=== PATIENT | male | born 1965 | race Caucasian/White ===

== ENCOUNTER 2019-04-17 04:04 | Emergency (ER) | payer OTHER ==
[~2019-04-17] VITALS: Ht 177.8 cm; Wt 122.5 kg
[2019-04-17] MEDS ORDERED: ONDANSETRON PF 4 MG/2 ML VIAL. IV ONE (04:30)
[2019-04-17] MEDS ORDERED: KETOROLAC 30 MG/ML VIAL. IV ONE (04:30)
[2019-04-17] MEDS ORDERED: IV NORMAL SALINE 1000ML BAG 1,000 ML IV ONE (04:30)
[2019-04-17 04:34] LABS: BASO # 0.1 x10^3/uL (0.0-0.2); BASO % 1 % (0-3); EOS # 0.1 x10^3/uL (0.0-0.7); EOS % 1 % (0-3); HEMATOCRIT 44.5 % (39.0-53.0); HEMOGLOBIN 15.4 g/dL (13.0-17.5); LYMPH # 1.4 x10^3/uL (1.0-4.8); LYMPH % 17 % (24-48); MEAN CORPUSCULAR HEMOGLOBIN 31 pg (25-35); MEAN CORPUSCULAR HGB CONC 35 g/dL (31-37); MEAN CORPUSCULAR VOLUME 89 fL (79-100); MONO # 0.7 x10^3/uL (0.0-1.1); MONO % 9 % (0-9); NEUT # 6.2 x10^3/uL (1.8-7.7); NEUT % 73 % (31-73); PLATELET COUNT 149 x10^3/uL (140-400); RED BLOOD COUNT 4.99 x10^6/uL (4.30-5.70); RED CELL DISTRIBUTION WIDTH 14.4 % (11.5-14.5); WHITE BLOOD COUNT 8.4 x10^3/uL (4.0-11.0)
--- NOTE | 2019-04-17 04:41 | PHYS DOC ---
Adult General Chief Complaint Chief Complaint: FLANK PAIN HPI HPI 53-year-old male presents to the emergency department with complaints of left flank pain. Patient states the pain woke him up around 2 AM this morning he had a bowel movement at that time however pain was not relieved. He describes nausea, vomiting. Pain is sharp, reached his groin. States his urine has been dark yellow color he did have a little bit of burning this morning. Patient does have past medical history of diabetes. No abdominal surgeries in the past. Nothing makes his pain worse, nothing makes his pain better. He has had kidney stones in the past however states is been a long time. Review of Systems Review of Systems Constitutional: Denies fever or chills [] Respiratory: Denies cough or shortness of breath [] Cardiovascular: No additional information not addressed in HPI [] GI: nausea, vomiting : Denies dysuria or hematuria [] Musculoskeletal: Left flank pain Integument: Denies rash or skin lesions [] Neurologic: Denies headache, focal weakness or sensory changes [] All other systems were reviewed and found to be within normal limits, except as documented in this note. Current Medications Current Medications Current Medications Medications (Trade) Dose Ordered Sig/Sheri Start Time Stop Time Status Last Admin Dose Admin Ketorolac Tromethamine (Toradol 30mg Vial) 30 mg 1X ONCE 04/17/19 04:30 04/17/19 04:41 DC 04/17/19 04:34 30 MG Ondansetron HCl (Zofran) 4 mg 1X ONCE 04/17/19 04:30 04/17/19 04:41 DC 04/17/19 04:34 4 MG Sodium Chloride 1,000 ml @ 1,000 mls/hr 1X ONCE 04/17/19 04:30 04/17/19 05:29 DC 04/17/19 04:34 1,000 MLS/HR Allergies Allergies Allergies Coded Allergies Type Severity Reaction Last Updated Verified No Known Drug Allergies 04/17/19 No Physical Exam Physical Exam Constitutional: Well developed, well nourished, acute distress secondary to pain. HENT: Normocephalic, atraumatic, bilateral external ears normal, oropharynx moist, no oral exudates, nose normal. [] Eyes: PERRLA, EOMI, conjunctiva normal, no discharge. [] Cardiovascular:Heart rate regular rhythm, no murmur [] Lungs & Thorax: Bilateral breath sounds clear to auscultation [] Abdomen: Bowel sounds normal, soft, no tenderness, no masses, no pulsatile masses. [] Skin: Warm, dry, no erythema, no rash. [] Back: no CVA tenderness. [] Extremities: No tenderness, no cyanosis, no clubbing, ROM intact, no edema. [] Neurologic: Alert and oriented X 3, no focal deficits noted. [] Psychologic: Affect normal, judgement normal, mood normal. [] Current Patient Data Vital Signs Vital Signs Date Time Temp Pulse Resp B/P (MAP) Pulse Ox O2 Delivery O2 Flow Rate FiO2 04/17/19 04:10 98.4 71 18 178/113 (134) 98 Room Air 98.4 Lab Values Laboratory Tests Test 04/17/19 04:20 White Blood Count 8.4 x10^3/uL (4.0-11.0) Red Blood Count 4.99 x10^6/uL (4.30-5.70) Hemoglobin 15.4 g/dL (13.0-17.5) Hematocrit 44.5 % (39.0-53.0) Mean Corpuscular Volume 89 fL (79-100) Mean Corpuscular Hemoglobin 31 pg (25-35) Mean Corpuscular Hemoglobin Concent 35 g/dL (31-37) Red Cell Distribution Width 14.4 % (11.5-14.5) Platelet Count 149 x10^3/uL (140-400) Neutrophils (%) (Auto) 73 % (31-73) Lymphocytes (%) (Auto) 17 % (24-48) L Monocytes (%) (Auto) 9 % (0-9) Eosinophils (%) (Auto) 1 % (0-3) Basophils (%) (Auto) 1 % (0-3) Neutrophils # (Auto) 6.2 x10^3/uL (1.8-7.7) Lymphocytes # (Auto) 1.4 x10^3/uL (1.0-4.8) Monocytes # (Auto) 0.7 x10^3/uL (0.0-1.1) Eosinophils # (Auto) 0.1 x10^3/uL (0.0-0.7) Basophils # (Auto) 0.1 x10^3/uL (0.0-0.2) Sodium Level 139 mmol/L (136-145) Potassium Level 4.0 mmol/L (3.5-5.1) Chloride Level 105 mmol/L (98-107) Carbon Dioxide Level 22 mmol/L (21-32) Anion Gap 12 (6-14) Blood Urea Nitrogen 13 mg/dL (8-26) Creatinine 1.2 mg/dL (0.7-1.3) Estimated GFR (Cockcroft-Gault) 63.1 BUN/Creatinine Ratio 11 (6-20) Glucose Level 212 mg/dL (70-99) H Calcium Level 9.0 mg/dL (8.5-10.1) Total Bilirubin 0.6 mg/dL (0.2-1.0) Aspartate Amino Transferase (AST) 31 U/L (15-37) Alanine Aminotransferase (ALT) 62 U/L (16-63) Alkaline Phosphatase 73 U/L (46-116) Total Protein 6.9 g/dL (6.4-8.2) Albumin 3.5 g/dL (3.4-5.0) Albumin/Globulin Ratio 1.0 (1.0-1.7) Laboratory Tests 04/17/19 04:20 Laboratory Tests 04/17/19 04:20 EKG EKG [] Radiology/Procedures Radiology/Procedures [facility] [address], [place] [id number] IMAGING REPORT Signed PATIENT: ARACELI RODRIGUEZ ACCOUNT: [id number] : 1965 LOCATION: ER AGE: 53 SEX: M EXAM STATUS: REG ER ORD. PHYSICIAN: TATI BROOKS MD REASON: left flank pain, concern for renal calculi PROCEDURE: CT ABDOMEN PELVIS WO CONTRAST Examination: CT of the abdomen pelvis without contrast HISTORY: History of left flank pain COMPARISON: 01/16/2006 TECHNIQUE: Axial CT images of the abdomen pelvis were performed without contrast. Coronal and sagittal reformats are performed. Exposure: One or more of the following individualized dose reduction techniques were utilized for this examination: 1. Automated exposure control 2. Adjustment of the mA and/or kV according to patient size 3. Use of iterative reconstruction technique FINDINGS: Minimal bibasilar lung atelectasis. No evidence of free air identified in the abdomen. The evaluation of the solid organs is limited due to lack of IV contrast. The evaluation of bowel is limited due to lack of oral contrast. Mild decreased attenuation noted throughout the liver likely hepatic steatosis. The spleen, adrenals grossly appears unremarkable. Accessory splenule identified just distal to the pancreatic tail similar to prior exam. The gallbladder is mildly distended. The stomach is mildly distended. The visualized pancreas grossly appears unremarkable. The small bowel is nondilated. 2.1 cm cystic structure identified in the right kidney could be a cyst or cystic lesion. Feces and gas noted in the colon. 4 mm calculus left kidney. Mild fat stranding identified about the left kidney. Mild left-sided hydronephrosis identified. There is a 3 mm calculus identified in the urinary bladder just distal to the left ureterovesical junction. Mild aortic atherosclerosis. Mild degenerative changes lumbar spine. IMPRESSION: 1. Mild left-sided hydronephrosis and hydroureter. There is a 3 mm calculus identified in the urinary bladder just distal to the left ureterovesical junction. Mild fat stranding identified about the left kidney and left ureter. 2. 4 mm calculus left kidney. 3. 2.1 cm cyst or cystic lesion identified in the right kidney. Recommend follow-up nonemergent ultrasound kidneys. 4. Mild hepatic steatosis. Electronically signed by: Ganesh Longoria MD (04/17/2019 5:37 AM) [facility] DICTATED and SIGNED BY: GANESH LONGORIA MD DATE: 04/17/19 0537 [] Course & Med Decision Making Course & Med Decision Making Pertinent Labs and Imaging studies reviewed. (See chart for details) 53-year-old male presents to the emergency department with complaints of left flank pain. Patient states the pain woke him up around 2 AM this morning he had a bowel movement at that time however pain was not relieved. He describes nausea, vomiting. Pain is sharp, reached his groin. States his urine has been dark yellow color he did have a little bit of burning this morning. Patient does have past medical history of diabetes. No abdominal surgeries in the past. Nothing makes his pain worse, nothing makes his pain better. He has had kidney stones in the past however states is been a long time. Toradol/Zofran provided with improved pain. Labs reviewed, white blood cell 8.4, creatinine 1.2, CT abdomen and pelvis pending to evaluate for renal calculus. Patient states pain improved he's resting comfortably at this time. CT does show evidence of 3 mm stone in the bladder as well as 4 mm stone in the left kidney. He does have incidental finding of 2.1 cm cystic lesion on the right kidney of which was discussed with the patient. Recommend nonemergent follow-up with ultrasound for further evaluation. Discussed antibiotics, Flomax upon discharge. Return precautions provided and discussed with patient and at bedside. Dragon Disclaimer Dragon Disclaimer This electronic medical record was generated, in whole or in part, using a voice recognition dictation system. Departure Departure Impression: Primary Impression: Kidney stone Additional Impressions: Renal cyst, right Nausea and vomiting Disposition: HOME, SELF-CARE Condition: STABLE Referrals: ROME SQUIRES DO (PCP) Patient Instructions: Diet for Kidney Stones Additional Instructions: Recommend follow up with PCP 3 - 5 days Return to the ER with worsening symptoms, intractable pain, fever, altered mental status Tylenol/Motrin as needed for pain Take antibioitics as directed (keflex) Take pain medications as directed Take nausea medications as directed Urology referral - [phone] (I did not call for consultation however if continued issues could consider follow up with Urology given multiple stones) Right renal cyst - recommend non emergent ultrasound follow up with PCP Scripts Ondansetron Hcl (ZOFRAN) 4 Mg Tablet 1 TAB PO Q6HRS, #20 TAB Prov: TATI BROOKS MD 04/17/19 Cephalexin (KEFLEX) 500 Mg Capsule 2 CAP PO Q12HR for 7 Days, #28 CAP Prov: TATI BROOKS MD 04/17/19 Hydrocodone/Apap 5-325 (NORCO 5-325 TABLET) 1 Each Tablet 1-2 TAB PO Q4-6HRS for pain, #14 TAB Prov: TATI BROOKS MD 04/17/19 Tamsulosin Hcl (FLOMAX) 0.4 Mg Cap.er.24h 1 CAP PO DAILY, #14 CAP 0 Refills Prov: TATI BROOKS MD 04/17/19 Problem Qualifiers Additional Impressions: Nausea and vomiting Vomiting type: unspecified Vomiting Intractability: non-intractable Qualified Codes: R11.2 - Nausea with vomiting, unspecified TATI BROOKS MD Apr 17, 2019 04:41
[2019-04-17 04:48] LABS: ALBUMIN 3.5 g/dL (3.4-5.0); CREATININE 1.2 mg/dL (0.7-1.3); GFR 63.1; TOTAL BILIRUBIN 0.6 mg/dL (0.2-1.0); TOTAL PROTEIN 6.9 g/dL (6.4-8.2)
[2019-04-17 05:20] VITALS: BP 154/73
--- NOTE | 2019-04-17 05:40 | RAD ---
Examination: CT of the abdomen pelvis without contrast HISTORY: History of left flank pain COMPARISON: 01/16/2006 TECHNIQUE: Axial CT images of the abdomen pelvis were performed without contrast. Coronal and sagittal reformats are performed. Exposure: One or more of the following individualized dose reduction techniques were utilized for this examination: 1. Automated exposure control 2. Adjustment of the mA and/or kV according to patient size 3. Use of iterative reconstruction technique FINDINGS: Minimal bibasilar lung atelectasis. No evidence of free air identified in the abdomen. The evaluation of the solid organs is limited due to lack of IV contrast. The evaluation of bowel is limited due to lack of oral contrast. Mild decreased attenuation noted throughout the liver likely hepatic steatosis. The spleen, adrenals grossly appears unremarkable. Accessory splenule identified just distal to the pancreatic tail similar to prior exam. The gallbladder is mildly distended. The stomach is mildly distended. The visualized pancreas grossly appears unremarkable. The small bowel is nondilated. 2.1 cm cystic structure identified in the right kidney could be a cyst or cystic lesion. Feces and gas noted in the colon. 4 mm calculus left kidney. Mild fat stranding identified about the left kidney. Mild left-sided hydronephrosis identified. There is a 3 mm calculus identified in the urinary bladder just distal to the left ureterovesical junction. Mild aortic atherosclerosis. Mild degenerative changes lumbar spine. IMPRESSION: 1. Mild left-sided hydronephrosis and hydroureter. There is a 3 mm calculus identified in the urinary bladder just distal to the left ureterovesical junction. Mild fat stranding identified about the left kidney and left ureter. 2. 4 mm calculus left kidney. 3. 2.1 cm cyst or cystic lesion identified in the right kidney. Recommend follow-up nonemergent ultrasound kidneys. 4. Mild hepatic steatosis. Electronically signed by: Ganesh Longoria MD (04/17/2019 5:37 AM) [facility]
[2019-04-17] MEDS ORDERED: CEPH-264 PO (06:10)
[2019-04-17] MEDS ORDERED: TAMS0.4C97 PO (06:10)
[2019-04-17] MEDS ORDERED: HYDR-3164 PO (06:10)
[2019-04-17] MEDS ORDERED: ONDA4TAB7 PO (06:10)
== END 2019-04-17 06:22 | disposition home or self-care (01) ==
LOC: ER 04:04
DX: N28.1 Cyst of kidney, acquired (principal); N13.2 Hydronephrosis with renal and ureteral calculous obstruction; R11.2 Nausea with vomiting, unspecified
CPT/HCPCS: 36415; 74176; 80053; 85025; 96361; 96374; 96375; 99285; J1885; J2405; J7030